=== PATIENT | male | born 1985 | race American Indian/Alaskan Native ===

== ENCOUNTER 2016-05-18 12:16 | Outpatient (CLI) | payer MEDICAID ==
--- NOTE | 2016-05-21 09:48 | Vascular Lab Report ---
LOWER EXTREMITY VENOUS DUPLEX: REASON FOR EXAM: Followup history of DVT. COMMENTS ON THE RIGHT: All veins visualized are freely compressible without evidence of internal echogenicity. Flow is spontaneous and phasic throughout. COMMENTS ON THE LEFT: All veins visualized are freely compressible without evidence of internal echogenicity. Flow is spontaneous and phasic throughout. IMPRESSION: No evidence of acute or chronic deep venous thrombosis in either lower extremity.
== END 2016-05-18 12:17 | disposition home or self-care (01) ==
LOC: VAS 12:16
PROVIDERS: ATTEND Internal Medicine Hematology & Oncology
DX: I82.409 Acute embolism and thrombosis of unspecified deep veins of unspecified lower extremity (principal); D69.3 Immune thrombocytopenic purpura; Z86.718 Personal history of other venous thrombosis and embolism; Z79.52 Long term (current) use of systemic steroids
CPT/HCPCS: 77080; 93970